=== PATIENT | female | born 1970 | race Caucasian/White ===

== ENCOUNTER → 2024-07-29 14:43 | Outpatient (BNVA) | payer MEDICAID, SELFPAY | PROVIDERS: Visit Provider Nurse Practitioner Family | DX: L71.8 Other rosacea (principal); T49.0X5A Adverse effect of local antifungal, anti-infective and anti-inflammatory drugs, initial encounter; X58.XXXA Exposure to other specified factors, initial encounter; I78.8 Other diseases of capillaries; D23.62 Other benign neoplasm of skin of left upper limb, including shoulder; D23.61 Other benign neoplasm of skin of right upper limb, including shoulder; L82.1 Other seborrheic keratosis; L72.0 Epidermal cyst; D18.01 Hemangioma of skin and subcutaneous tissue; L57.8 Other skin changes due to chronic exposure to nonionizing radiation; X32.XXXA Exposure to sunlight, initial encounter; L81.4 Other melanin hyperpigmentation; L57.3 Poikiloderma of Civatte; L82.0 Inflamed seborrheic keratosis | CPT/HCPCS: 17110; 99203 ==